=== PATIENT | female | born 1995 | race African-American/Black ===

== ENCOUNTER 2018-12-02 12:57 | Emergency (ER) | payer OTHER ==
[~2018-12-02] VITALS: Ht 165.1 cm; Wt 95.3 kg
[~2018-12-02 12:57] MED LIST: ADVAIR HFA 1112 UNIT INH; DOCUSATE SODIU100 MG PO; DUONEB 2.5-0.5 M3 ML INH; GLYCOLAX POWDER17 GM PO; HYDROCODONE-AP1 EAC6 PO; LEVAQUIN 750 M750 MG PO; MEDROL DOSPAK21 TA1 PO; MOM PO; MONTELUKAST SOD10 MG PO; NORCO 5-325 TA1 EACH PO; ONDANSETRON HCL4 M2 PO; PREDNISONE 10 M10 M1 PO; PRENATAL PO; PROAIR HFA8.5 GM INH; SENNA PO; ZOFRAN ODT4 MG PO; ZPAK PO
[2018-12-02] MEDS ORDERED: NAPROSYN500 MG PO (14:49)
[2018-12-02] MEDS ORDERED: NORFLEX100 MG PO (14:49)
[2018-12-02 14:57] VITALS: BP 128/61
== END 2018-12-02 14:57 | disposition home or self-care (01) ==
LOC: ER 12:57
DX: S16.1XXA Strain of muscle, fascia and tendon at neck level, initial encounter (principal); J45.909 Unspecified asthma, uncomplicated; Z90.89 Acquired absence of other organs; Z98.890 Other specified postprocedural states; V89.2XXA Person injured in unspecified motor-vehicle accident, traffic, initial encounter; Y92.89 Other specified places as the place of occurrence of the external cause; Y93.89 Activity, other specified; Y99.8 Other external cause status

== ENCOUNTER 2018-12-07 14:33 | Emergency (ER) | payer OTHER ==
[~2018-12-07] VITALS: Ht 165.1 cm; Wt 95.3 kg
[~2018-12-07 14:33] MED LIST changes: +NAPROSYN500 MG PO; +NORFLEX100 MG PO
[2018-12-07] MEDS ORDERED: NORFLEX100 MG PO (16:22)
[2018-12-07] MEDS ORDERED: MOBIC7.5 MG PO (16:22)
[2018-12-07 16:54] VITALS: BP 129/79
== END 2018-12-07 16:42 | disposition home or self-care (01) ==
LOC: ER 14:33
DX: S39.012A Strain of muscle, fascia and tendon of lower back, initial encounter (principal); J45.909 Unspecified asthma, uncomplicated; V89.0XXA Person injured in unspecified motor-vehicle accident, nontraffic, initial encounter; Y93.89 Activity, other specified; Y92.410 Unspecified street and highway as the place of occurrence of the external cause; Y99.8 Other external cause status

== ENCOUNTER 2019-11-01 04:34 | Inpatient (IN) | payer OTHER ==
[~2019-11-01] VITALS: Ht 165.1 cm; Wt 90.7 kg
[2019-11-01] VITALS (8 sets, daily range): BP systolic 119–132; BP diastolic 54–90
[~2019-11-01 04:34] MED LIST changes: +MOBIC7.5 MG PO
[2019-11-01] MEDS ORDERED: PREDNISONE 5 MG5 M1 PO (04:42)
[2019-11-01] MEDS ORDERED: PROAIR HFA8.5 GM INH (04:42)
[2019-11-01 05:01] LABS: URINE BILIRUBIN NEGATIVE (Negative); URINE BLOOD NEGATIVE (Negative); URINE CLARITY CLEAR; URINE COLOR YELLOW; URINE GLUCOSE-RANDOM* NEGATIVE (Negative); URINE KETONES NEGATIVE (Negative); URINE LEUKOCYTES-REFLEX TRACE (Negative); URINE NITRITE-REFLEX NEGATIVE (Negative); URINE PROTEIN (DIPSTICK) NEGATIVE (Negative); URINE SPECIFIC GRAVITY 1.025 (1.005-1.035)
[2019-11-01 05:31] LABS: ABSOLUTE NEUTROPHILS 9.2 thou/uL (1.4-8.2); BASOPHILS 0.4 % (0.0-2.0); EOSINOPHILS 3.1 % (0.0-3.0); HEMATOCRIT 35.9 % (37.0-47.0); HEMOGLOBIN 11.5 gm/dL (12.0-15.0); LYMPHOCYTES 19.6 % (24.0-44.0); MCH 28.8 pg (26.0-34.0); MCHC 32.1 g/dL (28.0-37.0); MCV 89.7 fL (80.0-100.0); MONOCYTES 7.1 % (1.0-8.0); PLATELET COUNT 300 thou/uL (150-400); POLYS 69.8 % (36.0-66.0); RDW 14.2 % (10.5-14.5); WBC 13.2 thou/uL (4.0-11.0)
[2019-11-01 05:33] LABS: CALCIUM 8.4 mg/dL (8.5-10.1); CREATININE 0.8 mg/dL (0.6-1.0); POTASSIUM 3.3 mmol/L (3.5-5.1)
[2019-11-01] MEDS ORDERED: SYMBICORT160 MCG/4. INH (10:50)
--- NOTE | 2019-11-01 14:07 | NUR ---
PT CARE ASSUMED 0940 FROM ER. REPORT RECEIVED FROM YA FORD. PT IS INDEPENDENT UP AT VI IN ROOM [facility]. IV IS PATENT WITH NO EDEMA OR REDNESS. SALINE LOCKED. ACHS DUE TO SOLUMEDROL. COVERAGE NEEDED. ADMISSION COMPLEETE. MEDS RECONCILED. MOTHER IN ROOM. PT SON IS ALSO HEADED TO THE ER WITH A FEVER OF 104.0 PT HAS PRN BREATHING TREATMENT. CALL LIGHT IN REACH.
[2019-11-01] MEDS ORDERED: IPRAT-ALBUT 0.5-3 ML INH (19:19)
[2019-11-01] MEDS ORDERED: LEVAQUIN 750 M750 MG PO (19:19)
[2019-11-01] MEDS ORDERED: PREDNISONE 10 M10 M1 PO (19:19)
--- NOTE | 2019-11-01 20:02 | NUR ---
PT D/C HOME AT 1945. D/C INSTRUCTIONS GIVEN
== END 2019-11-01 20:04 | disposition home or self-care (01) | DRG 189 ==
LOC: ER 04:34 → 4S 09:29 → ER 09:29 → 4S 09:41
PROVIDERS: Emergency Medicine; ADMIT Hospitalist
DX: J96.00 Acute respiratory failure, unspecified whether with hypoxia or hypercapnia (principal); R04.2 Hemoptysis; J45.901 Unspecified asthma with (acute) exacerbation; B34.9 Viral infection, unspecified; J20.9 Acute bronchitis, unspecified; Z98.891 History of uterine scar from previous surgery; Z79.899 Other long term (current) drug therapy
CPT/HCPCS: 10195

== ENCOUNTER 2021-04-23 17:07 | Emergency (ER) | payer OTHER ==
[~2021-04-23] VITALS: Ht 165.1 cm; Wt 90.7 kg
[~2021-04-23 17:07] MED LIST changes: +IPRAT-ALBUT 0.5-3 ML INH; +PREDNISONE 5 MG5 M1 PO; +SYMBICORT160 MCG/4. INH
[2021-04-23 17:12] VITALS: BP 118/78
== END 2021-04-23 17:29 | disposition home or self-care (01) ==
LOC: ER 17:07
PROVIDERS: Physician Assistant
DX: R51.9 Headache, unspecified (principal); Z20.822 Contact with and (suspected) exposure to COVID-19; R09.81 Nasal congestion; J45.909 Unspecified asthma, uncomplicated; Z90.89 Acquired absence of other organs; Z98.890 Other specified postprocedural states; Z79.899 Other long term (current) drug therapy; Z79.82 Long term (current) use of aspirin; Z91.09 Other allergy status, other than to drugs and biological substances